=== PATIENT | male | born 1995 | race Caucasian/White ===

== ENCOUNTER 2018-04-18 20:55 | Emergency (ER) | payer OTHER ==
[2018-04-18] MEDS ORDERED: predniSONE 20 MG TAB PO ONE (21:32)
[2018-04-18] MEDS ORDERED: IPRATROPIUM/ALBUTEROL 3 ML DEYVIAL IH ONE (21:32)
--- NOTE | 2018-04-18 21:33 | EDPHY ---
H & P Stated Complaint: 3 weeks cough and SOB Time Seen by Provider: 04/18/18 21:28 HPI/ROS: CHIEF COMPLAINT: Wheezing x3 weeks HISTORY OF PRESENT ILLNESS: 22-year-old male history of reactive airways disease complaining of 3 weeks of wheezing, worse since returning home where he has a cat which exacerbates his symptoms. No chest pain. No fever or chills. No URI symptoms. No flu like symptoms. No rash. No abdominal pain. No headache. PRIMARY CARE PROVIDER: REVIEW OF SYSTEMS: 10 systems reviewed and negative with the exception of the elements mentioned in the history of present illness PAST MEDICAL & SURGICAL HISTORY: asthma SOCIAL HISTORY:intermittent smoking PHYSICAL EXAM (Prior to examination, patient consented to physical exam, hands were washed and my usual and customary physical exam procedures followed) 1) GENERAL: Well-developed, well-nourished, alert and oriented. Appears to be in no acute distress. 2) HEAD: Normocephalic, atraumatic 3) HEENT: Pupils equal, round, reactive to light bilaterally. Sclera anicteric. Nasopharynx, oropharynx, clear, no lesions. MoistDry mucous membranes. Ears bilaterally with normal tympanic membranes. 4) NECK: Full range of motion, no meningeal signs. 5) LUNGS: Clear auscultation bilaterally, no wheezes, no rhonchi, no retractions. 6) HEART: Regular rate and rhythm, no murmur, no heave, no gallop. 7) ABDOMEN: No guarding, no rebound, no focal tenderness, negative McBurney's, negative Winn's, negative Rovsing's, negative peritoneal sign, 8) MUSCULOSKELETAL: Moving all extremities, no focal areas of tenderness, no obvious trauma. No peripheral edema or discoloration. 9) BACK: No CVA tenderness, no midline vertebral tenderness, no fluctuance, no step-off, no obvious trauma, no visual or palpable abnormality. 10) SKIN: No rash, no petechiae. 11) Psychiatric: Patient is oriented X 3, there is no agitation. DIFFERENTIAL DIAGNOSIS: In no particular order including but not limited to bronchitis, pneumonia, acute asthma exacerbation, influenza - Personal History Current Tetanus Diphtheria and Acellular Pertussis (TDAP): Unsure - Medical/Surgical History Hx Asthma: Yes Hx Chronic Respiratory Disease: No Hx Diabetes: No Hx Cardiac Disease: No Hx Renal Disease: No Hx Cirrhosis: No Hx Alcoholism: No Hx HIV/AIDS: No Hx Splenectomy or Spleen Trauma: No Other PMH: exercise induced asthma - Social History Smoking Status: Never smoked Constitutional: Initial Vital Signs Temperature (C) 36.4 C 04/18/18 21:06 Heart Rate 108 H 04/18/18 21:06 Respiratory Rate 18 04/18/18 21:06 Blood Pressure 124/82 H 04/18/18 21:06 O2 Sat (%) 90 L 04/18/18 21:06 O2 Delivery Mode Room Air Allergies/Adverse Reactions: amoxicillin Allergy (Verified 04/18/18 21:05) Penicillins Allergy (Verified 04/18/18 21:05) Sulfa (Sulfonamide Antibiotics) Allergy (Verified 04/18/18 21:05) Home Medications: Medication Instructions Recorded Albuterol 04/18/18 Albuterol [Proventil Inhaler HFA 1 - 2 puffs IH Q4PRN PRN #1 mdi 04/18/18 (*)] predniSONE [Prednisone] 20 mg PO DAILY #9 tablet 04/18/18 Medical Decision Making - Diagnostics Imaging Results: Images reviewed by myself ED Course/Re-evaluation: 10:04 p.m.: Re-evaluation after DuoNeb and oral steroid. His lungs are clear bilaterally, maintaining normal saturations states that he is feeling improvement. He would like to be discharged. Given prescription for albuterol and continued steroids. No infiltrate on chest x-ray. Will hold on antibiotics. Usual and customary respiratory precautions instructions provided. Care of patient under supervision of secondary supervising physician Dr grissom with whom I discussed case. - Data Points Medications Given: Discontinued Medications Albuterol/Ipratropium (Duoneb) 3 ml IH EDNOW ONE Stop: 04/18/18 21:33 Last Admin: 04/18/18 21:37 Dose: 3 ml Prednisone (Prednisone) 60 mg PO EDNOW ONE Stop: 04/18/18 21:33 Last Admin: 04/18/18 21:37 Dose: 60 mg Departure - Departure Disposition: Home, Routine, Self-Care Clinical Impression: Acute bronchitis, Asthma exacerbation Condition: Good Instructions: Acute Bronchitis (ED) Additional Instructions: You were examined in the emergency department today for upper respiratory infection (URI) like symptoms. While more URIs are caused by viral illnesses, we cannot always exclude the possibility of a bacterial infection that may require treatment with antibiotics. Please be re-examined by a medical professional within 24 hours. Return to the emergency department immediately for change in breathing habits, change in voice, change in swallowing habits, change in mental status, or any other symptoms that concern you. Referrals: [facility],. [Clinic] - 2-3 days, call for appt. Prescriptions: Albuterol [Proventil Inhaler HFA (*)] 1 - 2 puffs IH Q4PRN PRN #1 mdi PRN Reason: Cough, Moderate predniSONE [Prednisone] 20 mg PO DAILY #9 tablet
[2018-04-18 22:14] VITALS: BP 105/65
== END 2018-04-18 22:14 | disposition home or self-care (01) ==
DX: J20.9 Acute bronchitis, unspecified (principal); J45.901 Unspecified asthma with (acute) exacerbation; F17.200 Nicotine dependence, unspecified, uncomplicated
CPT/HCPCS: J7512